=== PATIENT | male | born 1980 | race Caucasian/White ===

== ENCOUNTER 2023-04-14 12:05 | Emergency (ER) | payer BC, SELFPAY ==
[2023-04-14 12:10] VITALS: BP 126/84; PULSE 76; RESP 14; TEMP 36.1; O2SAT 98
--- NOTE | 2023-04-14 12:13 | ED.WOUNDLAC ---
HPI - Wound/Laceration General Chief Complaint: Wound/Laceration Stated Complaint: lac on forehead Source: patient and RN notes reviewed History of Present Illness HPI narrative: 42 yo M presents to urgent care with complaints of a laceration above his left eyebrow. Pt states about 30 minutes [employer], he stood up in his truck bed and forgot he parked under a basketball hoop, hitting his forehead on the metal hoop. States he saw starts. Denies any LOC, neck pain, vomiting, or other symptoms. Does not know when his last Tdap was. Related Data Home Medications Medication Instructions Recorded Confirmed atenolol 50 mg tablet 50 mg PO DAILY 04/14/23 04/14/23 pantoprazole 40 mg tablet,delayed 40 mg PO HS 04/14/23 04/14/23 release Allergies Allergy/AdvReac Type Severity Reaction Status Date / Time pseudoephedrine Allergy Redness of Verified 04/14/23 12:19 Skin Review of Systems Review of Systems: CONSTITUTIONAL: Denies fever, chills, or sweats. EYES: Denies visual changes, redness, or discharge. ENT: Denies otalgia and sore throat CARDIOVASCULAR: Denies chest pain, palpitations, or edema. RESPIRATORY: Denies cough or dyspnea. GASTROINTESTINAL: Denies abdominal pain, nausea, vomiting, or diarrhea. GENITOURINARY: Denies dysuria or hematuria. SKIN: laceration to forehead MUSCULOSKELETAL: Denies back pain, joint pain, or myalgia. NEUROLOGIC: Denies headache, numbness, or weakness. Pertinent positives per HPI. PMFSH Comments At the time of my signature, I reviewed and agree with the nursing past medical, surgical, social, and family history. There is no relevant family history pertinent to the patient complaint. Exam Narrative: GENERAL: This is a well-nourished, well-developed patient, in no apparent distress. HEAD: normocephalic. EYES: Sclera clear/white. Vision is grossly intact. EARS: External ears normal, auditory canals clear and without drainage, TMs normal without perforation. Hearing grossly intact. NOSE: External nose normal with no obvious nasal discharge, nares without redness, no rhinorrhea. THROAT: Mucous membranes moist, posterior pharynx clear. NECK: Neck supple, non-tender without lymphadenopathy, masses or thyromegaly. CARDIOVASCULAR: Regular rate and rhythm without murmurs, gallops, or rubs. RESPIRATORY: Clear to auscultation. Breath sounds equal bilaterally. No wheezes, rales, or rhonchi. GASTROINTESTINAL: Abdomen soft, non-tender, nondistended. Bowel sounds are active. No hepato-splenomegaly, or palpable masses. No guarding. SKIN: 1.5 cm laceration above left eyebrow. bleeding controlled. NEURO: awake, alert, and oriented to person, place and time. There were no obvious focal neurologic abnormalities. EXTREMITIES: No clubbing, cyanosis, or edema. No joint tenderness, effusion, or edema noted. BACK: Nontender without deformity or crepitus. No flank tenderness. Course Course Level of Care: Express Care Visit Vital Signs Vital signs: Vital Signs Temperature 97 F L 04/14/23 12:10 Pulse Rate 76 04/14/23 12:10 Respiratory Rate 14 04/14/23 12:10 Blood Pressure 126/84 04/14/23 12:10 Pulse Oximetry 98 04/14/23 12:10 Oxygen Delivery Room Air 04/14/23 12:10 Temperature 97 F L 04/14/23 12:20 Pulse Rate 76 04/14/23 12:20 Respiratory Rate 14 04/14/23 12:20 Blood Pressure 126/84 04/14/23 12:20 Pulse Oximetry 98 04/14/23 12:20 Oxygen Delivery Room Air 04/14/23 12:20 Reviewed Procedures Laceration Laceration 1: Date: 04/14/23 Time: 12:20 Site: face (above eyebrow) Side (If applicable): left Size (cm): 1.5 Description: linear and clean Depth: simple, single layer Local Anesthetic: none Pre-repair: wound explored and irrigated ====== Skin Level ====== Skin layer closed with: dermabond ====== Subcutaneous Layer ====== ====== Muscle Layer ====== ====== Tendo
[2023-04-14 12:20] VITALS: BP 126/84; PULSE 76; RESP 14; TEMP 36.1; O2SAT 98
[2023-04-14] MEDS: TETANUS,DIPHTHERIA,AC PERTUSSIS ADULT (0.5 ML) BOOSTRIX IM (12:24)
== END 2023-04-14 12:44 | disposition home or self-care (01) ==
PROVIDERS: Emergency Provider Nurse Practitioner Family; PCP Internal Medicine
DX: S01.81XA Laceration without foreign body of other part of head, initial encounter (principal); W22.8XXA Striking against or struck by other objects, initial encounter; Z23 Encounter for immunization; I10 Essential (primary) hypertension; I20.9 Angina pectoris, unspecified; K21.9 Gastro-esophageal reflux disease without esophagitis
CPT/HCPCS: 12011; 90471; 90715; 99212; G0463